=== PATIENT | female | born 1995 | race American Indian/Alaskan Native ===

== ENCOUNTER 2018-07-19 15:27 | Emergency (ER) | payer SELFPAY ==
[2018-07-19 15:51] VITALS: BMI 27.6
[2018-07-19 15:54] VITALS: RESP 18; O2SAT 100
[2018-07-19] MEDS ORDERED: Sodium Chloride 0.9% 1,000 ML IV ONE (16:36)
--- NOTE | 2018-07-19 16:36 | C.PDOC ---
History Of Present Illness 23 y/o female presents to ED with c/o abdominal pain and back pain for 2 weeks associated with vomiting for 1 week worse after eating. Patient took motrin with no improvement and denies recent travel, fever, dysuria, hematuria, vaginal discharge, urinary frequency or urinary incontinence. LMP 05/2018 <Sari Ruff - Last Filed: 07/19/18 18:53> History Per: Patient History/Exam Limitations: no limitations Onset/Duration Of Symptoms: Days Current Symptoms Are (Timing): Still Present <Sari Ruff - Last Filed: 07/19/18 18:53> <Deng Hermosillo - Last Filed: 07/19/18 19:55> Time Seen by Provider: 07/19/18 16:11 Chief Complaint (Nursing): Abdominal Pain Past Medical History Reviewed: Historical Data, Nursing Documentation, Vital Signs Vital Signs: Last Vital Signs Temp 98.6 F 07/19/18 15:50 Pulse 100 H 07/19/18 15:50 Resp 18 07/19/18 15:50 BP 113/73 07/19/18 15:50 Pulse Ox 100 07/19/18 15:50 - Medical History PMH: Migraine Surgical History: No Surg Hx - [facility] Procedures INJECT/INFUSE ELECTROLYT (05/25/14) Family History: States: No Known Family Hx - Social History Hx Alcohol Use: No Hx Substance Use: Yes (marijuana) - Immunization History Hx Tetanus Toxoid Vaccination: No Hx Influenza Vaccination: No Hx Pneumococcal Vaccination: No <Sari Ruff - Last Filed: 07/19/18 18:53> Vital Signs: Last Vital Signs Temp 98.5 F 07/19/18 19:40 Pulse 85 07/19/18 19:40 Resp 18 07/19/18 19:40 BP 121/71 07/19/18 19:40 Pulse Ox 100 07/19/18 19:40 - [facility] Procedures INJECT/INFUSE ELECTROLYT (05/25/14) <Deng Hermosillo - Last Filed: 07/19/18 19:55> Review Of Systems Constitutional: Negative for: Fever, Chills Gastrointestinal: Positive for: Vomiting, Abdominal Pain. Negative for: Diarrhea, Constipation Genitourinary: Negative for: Dysuria Musculoskeletal: Positive for: Back Pain Skin: Negative for: Rash <SpeedySari - Last Filed: 07/19/18 18:53> Physical Exam - Physical Exam Appears: Non-toxic, No Acute Distress Skin: Warm, Dry, No Rash Head: Atraumatic, Normacephalic Eye(s): bilateral: Normal Inspection Oral Mucosa: Moist Neck: Normal ROM, Supple Cardiovascular: Rhythm Regular Respiratory: Normal Breath Sounds, No Rales, No Rhonchi, No Wheezing Gastrointestinal/Abdominal: Soft, No Tenderness, No Guarding, No Rebound Back: No CVA Tenderness Extremity: Bilateral: Atraumatic Neurological/Psych: Oriented x3, Normal Speech, Normal Cognition <RuffSari - Last Filed: 07/19/18 18:53> ED Course And Treatment - Laboratory Results Result Diagrams: 07/19/18 17:14 07/19/18 17:14 O2 Sat by Pulse Oximetry: 100 (ra) Pulse Ox Interpretation: Normal <RuffSari - Last Filed: 07/19/18 18:53> - Laboratory Results Result Diagrams: 07/19/18 17:14 07/19/18 17:14 Pulse Ox Interpretation: Normal Reevaluation Time: 19:55 Reassessment Condition: Improved <JaimeeGlenyskarin - Last Filed: 07/19/18 19:55> Medical Decision Making Medical Decision Making: Impression: Abdominal pain and vomiting POC test positive Plan: * Blood work * UA Progress: Labs reviewed , potassium slightly hemolyzed. UA shows no infection, positive result. 1900 Case signed out to night attending DR Hermosillo pending US results. <SpeedySari Cristofer - Last Filed: 07/19/18 18:53> Disposition - Disposition Disposition Time: 19:04 <SpeedySari Cristofer - Last Filed: 07/19/18 18:53> Counseled Patient/Family Regarding: Studies Performed, Diagnosis, Need For Followup <Deng Hermosillo - Last Filed: 07/19/18 19:55> - Disposition Referrals: Leah Oates MD [Medical Doctor] - Condition: STABLE Additional Instructions: Please follow up with ypur chef kitchen manager Instructions: (ED) - Clinical Impression Clinical Impression: Positive test - PA / SOUND TECHNICIAN SUPERVISOR / Resident Statement /DO has reviewed & agrees with the documentation as recorded. - Scribe Statement The provider has reviewed the documentation as recorded by the Scribe Merlene Bobby All medical record entries made by the Adyibe were at my direction and personally dictated by me. I have reviewed the chart and agree that the record accurately reflects my personal performance of the history, physical exam, medical decision making, and the department course for this patient. I have also personally directed, reviewed, and agree with the discharge instructions and disposition. <Sari Ruff - Last Filed: 07/19/18 18:53> Physician Patient Turnover Patient Signed Over To: Deng Hermosillo Handoff Comments: pending US results. <Sari Ruff - Last Filed: 07/19/18 18:53>
[2018-07-19 17:22] LABS: BASO # 0.1 K/uL (0.0-0.2); BASO % 0.9 % (0.0-2.0); EOS # 0.1 K/uL (0.0-0.7); EOS % 1.4 % (0.0-4.0); HEMOGLOBIN 11.8 g/dL (11.0-16.0); LYMPH # 2.8 K/uL (1.0-4.3); LYMPH % 28.5 % (20.0-40.0); MEAN CELL VOLUME 84.3 fL (81.0-99.0); MEAN CORPUSCULAR HEMOGLOBIN 27.6 pg (27.0-31.0); MEAN CORPUSCULAR HGB CONC 32.7 g/dL (33.0-37.0); MEAN PLATELET VOLUME 8.6 fL (7.2-11.7); MONO # 0.7 K/uL (0.0-0.8); MONO % 7.3 % (0.0-10.0); NEUT % 61.9 % (50.0-75.0); NRBC % 0.1 % (0.0-2.0); RBC 4.3 Mil/uL (3.80-5.20); RED CELL DISTRIBUTION WIDTH 13.6 % (11.5-14.5); WHITE BLOOD COUNT 9.7 K/uL (4.8-10.8)
[2018-07-19 17:31] LABS: BLOOD UREA NITROGEN 8 mg/dL (7-17); CALCIUM 9.2 mg/dl (8.6-10.4); GFR NON-AFRICAN AMERICAN > 60
[2018-07-19 17:42] LABS: ALB/GLOB RATIO 1.3 (1.0-2.1); ALBUMIN 4.4 g/dL (3.5-5.0); ALT/SGPT 25 U/L (9-52); AST/SGOT 27 U/L (14-36)
[2018-07-19 18:01] LABS: HCG,QUALITATIVE URINE POSITIVE (NEGATIVE)
[2018-07-19 18:02] LABS: SQUAMOUS EPITHIAL 2 /hpf (0-5); URINE BACTERIA RARE (<OCC); URINE BILIRUBIN NEGATIVE (NEGATIVE); URINE BLOOD NEGATIVE (NEGATIVE); URINE CLARITY Clear (Clear); URINE COLOR Yellow (YELLOW); URINE GLUCOSE (UA) NORMAL (Normal); URINE LEUKOCYTE ESTERASE NEG Leu/uL (Negative); URINE PROTEIN NEGATIVE (NEGATIVE); URINE UROBILINOGEN NORMAL mg/dL (0.2-1.0)
[2018-07-19 20:12] VITALS: BP 130/81; PULSE 94; TEMP 98.7
--- NOTE | 2018-07-20 08:42 | US ---
Pelvic ultrasound HISTORY: . Pain. COMPARISON: None available. Technique: Real-time sonography was performed through the pelvis utilizing transabdominal and transvaginal techniques. Findings: Uterus: 7.1 x 5.1 x 5.3 centimeters. Heterogeneous echotexture. Anteverted. Cervix measures 2.8 centimeters. Intrauterine gestational sac measures 1.9 centimeters corresponding to a gestational age of 6 weeks and 3 days. Yolk sac measures 3 millimeters. Fortine-rump length measures 1.0 centimeters corresponding to a gestational age of 7 weeks and 1 day. heart rate of 148 beats per minute. Subchorionic hemorrhage seen adjacent to the gestational sac measuring 1.9 x 1.7 x 0.6 centimeters. Free fluid noted within the pelvic cul-de-sac. Right ovary: 4.0 x 2.4 x 3.4 centimeters. Normal flow. Heterogeneous right ovarian corpus luteal cyst measuring 2.1 x 1.4 x 2.1 centimeters. Left ovary: 2.5 x 2.2 x 2.7 centimeters. Normal flow. Impression: Intrauterine corresponding to a gestational age of 7 weeks and 1 days by crown-rump length of 1.0 centimeters. heart rate of 148 beats per minute. Subchorionic hemorrhage seen adjacent to the gestational sac measuring 1.9 x 1.7 x 0.6 centimeters. Probable right ovarian corpus luteal cyst measuring 2.1 centimeters. Free fluid noted within the pelvic cul-de-sac. Limited 1st trimester ultrasound for viability purposes only. Continued interval followup with serial ultrasound, serial HCG levels, and gynecological consultation would be helpful if clinically indicated. A preliminary report was generated at 7:27 p.m. on 07/19/[address] Carolyn Orozco from [facility]
== END 2018-07-19 20:12 | disposition home or self-care (01) ==
LOC: C.ER 15:27
DX: R10.9 Unspecified abdominal pain (principal); R11.10 Vomiting, unspecified; Z32.01 Encounter for pregnancy test, result positive
CPT/HCPCS: 76805; 76817; 80053; 81001; 84702; 84703; 85025; 96360; 99285; J7030

== ENCOUNTER 2018-08-23 16:24 | Emergency (ER) | payer MEDICAID ==
[2018-08-23 16:25] VITALS: BMI 27.6
[2018-08-23] MEDS ORDERED: Sodium Chloride 0.9% 1,000 ML IV ONE (17:08)
--- NOTE | 2018-08-23 17:34 | C.PDOC ---
History Of Present Illness 23-year-old female, approximately 11 weeks , presents to the ED today complaining of nausea and vomiting since the beginning of her . Patient reports loss of appetite but states she is gaining weight. Two days ago she was feeling weak and passed out at home. Patient did not seek medical attention at that time. Today she tried eating chicken wings and fries, then vomited immediately, and came to the ED. Otherwise she denies any fever, chills, cough, URI symptoms, abdominal pain, vaginal bleeding, or urinary symptoms. Time Seen by Provider: 08/23/18 17:08 Chief Complaint (Nursing): GI Problem History Per: Patient History/Exam Limitations: no limitations Onset/Duration Of Symptoms: Days Current Symptoms Are (Timing): Still Present Past Medical History Reviewed: Historical Data, Nursing Documentation, Vital Signs Vital Signs: Last Vital Signs Temp 98.1 F 08/23/18 16:41 Pulse 111 H 08/23/18 16:41 Resp 18 08/23/18 16:41 BP 122/72 08/23/18 16:41 Pulse Ox 99 08/23/18 16:41 - Medical History PMH: GERD, Migraine Denies: Chronic Kidney Disease Other PMH: Ovarian cyst Surgical History: No Surg Hx Denies: Pacemaker - [facility] Procedures INJECT/INFUSE ELECTROLYT (05/25/14) Family History: States: No Known Family Hx - Social History Hx Tobacco Use: Yes Hx Alcohol Use: No Hx Substance Use: Yes (marijuana) - Immunization History Hx Tetanus Toxoid Vaccination: No Hx Influenza Vaccination: No Hx Pneumococcal Vaccination: No Review Of Systems Except As Marked, All Systems Reviewed And Found Negative. Constitutional: Negative for: Fever, Chills Cardiovascular: Negative for: Chest Pain Respiratory: Negative for: Cough, Shortness of Breath Gastrointestinal: Positive for: Nausea, Vomiting. Negative for: Abdominal Pain, Hematemesis Genitourinary: Negative for: Dysuria, Frequency, Vaginal Discharge, Vaginal Bleeding Neurological: Negative for: Headache, Dizziness Physical Exam - Physical Exam Appears: Non-toxic, No Acute Distress Skin: Warm, Dry, No Rash Head: Atraumatic, Normacephalic Eye(s): bilateral: Normal Inspection Oral Mucosa: Moist Neck: Normal ROM Chest: Symmetrical Cardiovascular: Rhythm Regular, No Murmur Respiratory: Normal Breath Sounds, No Rales, No Rhonchi, No Wheezing Gastrointestinal/Abdominal: Bowel Sounds (normal), Soft, No Tenderness, No Guarding Back: Normal Inspection Extremity: Bilateral: Atraumatic, Normal Color And Temperature, Normal ROM Neurological/Psych: Oriented x3, Normal Speech Gait: Steady ED Course And Treatment - Laboratory Results Result Diagrams: 08/23/18 18:05 08/23/18 18:05 O2 Sat by Pulse Oximetry: 99 (on room air) Pulse Ox Interpretation: Normal Medical Decision Making Medical Decision Making: Impression: Nausea, vomiting during Plan: * CBC, CMP * UA, Urine HCG * IV fluids infusing Progress/Updates: Labs reviewed. On re-eval, the patient states she is feeling better but wants medicine for pain. states she has slight headache and epigastric pain and is now hungry. Tylenol PO was ordered. Discussed results with patient. Advise to drink fluids and follow up in the clinic. Rx given. Disposition Counseled Patient/Family Regarding: Diagnosis, Need For Followup, Rx Given - [facility]position [facility] Disposition: HOME/ ROUTINE Disposition Time: 18:36 Condition: STABLE Additional Instructions: Take medicine for nausea/vomiting as needed Follow up in the clinic with marketing/sales person Prescriptions: Doxylamine/Pyridoxine HCl (B6) [Donnell Gong 10-10 mg Tablet] 1 each PO Q6 PRN #20 tablet.dr MONTES Reason: Nausea/Vomiting Instructions: Nausea and Vomiting of (DC) - POA Present On Arrival: None - Clinical Impression Clinical Impression: Hyperemesis gravidarum - PA / DENTOFACIAL ORTHOPEDICS DENTIST / Resident Statement MD/DO has reviewed & agrees with the documentation as recorded. - Scribe Statement The provider has reviewed the documentation as recorded by the Scribjosh Mann All medical record entries made by the Adyibjosh were at my direction and personally dictated by me. I have reviewed the chart and agree that the record accurately reflects my personal performance of the history, physical exam, medical decision making, and the department course for this patient. I have also personally directed, reviewed, and agree with the discharge instructions and disposition.
[2018-08-23 18:08] LABS: BASO % 0.5 % (0.0-2.0); EOS # 0.1 K/uL (0.0-0.7); EOS % 0.6 % (0.0-4.0); HEMOGLOBIN 12.4 g/dL (11.0-16.0); LYMPH % 21.4 % (20.0-40.0); MEAN CELL VOLUME 85.1 fL (81.0-99.0); MEAN CORPUSCULAR HEMOGLOBIN 28.1 pg (27.0-31.0); MEAN PLATELET VOLUME 7.9 fL (7.2-11.7); MONO # 0.7 K/uL (0.0-0.8); MONO % 7.8 % (0.0-10.0); NEUT # 6.4 K/uL (1.8-7.0); NEUT % 69.7 % (50.0-75.0); NRBC % 0.1 % (0.0-2.0); RBC 4.43 Mil/uL (3.80-5.20); WHITE BLOOD COUNT 9.1 K/uL (4.8-10.8)
[2018-08-23 18:10] LABS: HCG,QUALITATIVE URINE POSITIVE (NEGATIVE)
[2018-08-23 18:22] LABS: SQUAMOUS EPITHIAL 1 /hpf (0-5); URINE BACTERIA RARE (<OCC); URINE BILIRUBIN NEGATIVE (NEGATIVE); URINE BLOOD NEGATIVE (NEGATIVE); URINE CALCIUM OXALATE CRYSTALS OCC /hpf (<OCC); URINE CLARITY Clear (Clear); URINE COLOR Yellow (YELLOW); URINE GLUCOSE (UA) 1+ mg/dL (Normal); URINE HYALINE CAST 0-2 /lpf (0-2); URINE LEUKOCYTE ESTERASE NEG Leu/uL (Negative); URINE PROTEIN 1+ mg/dL (NEGATIVE)
[2018-08-23 18:28] LABS: ALB/GLOB RATIO 1.4 (1.0-2.1); ALBUMIN 4.6 g/dL (3.5-5.0); ALT/SGPT 19 U/L (9-52); AST/SGOT 20 U/L (14-36); BLOOD UREA NITROGEN 7 mg/dL (7-17); CALCIUM 9.5 mg/dl (8.6-10.4); GFR NON-AFRICAN AMERICAN > 60
[2018-08-23 19:25] VITALS: BP 113/77; PULSE 93; RESP 16; TEMP 98.7; O2SAT 100
== END 2018-08-23 19:24 | disposition home or self-care (01) ==
LOC: C.ER 16:24
DX: O21.0 Mild hyperemesis gravidarum (principal); Z3A.11 11 weeks gestation of pregnancy
CPT/HCPCS: 80053; 81001; 84703; 85025; 96360; 99285; J7030

== ENCOUNTER 2018-09-01 11:17 | Emergency (ER) | payer MEDICAID ==
[2018-09-01 11:37] VITALS: BMI 30.9
[2018-09-01 12:49] LABS: HCG,QUALITATIVE URINE POSITIVE (NEGATIVE)
[2018-09-01] MEDS ORDERED: Sodium Chloride 0.9% 1,000 ML IV ONE (12:54)
--- NOTE | 2018-09-01 12:55 | C.PDOC ---
History Of Present Illness 23yo female, , comes to ER reporting she had a syncopal episode this morning. Patient states she has been having decreased PO intake and is feeling increasingly nauseous; patient states she ate half a banana this morning and did not drink anything. She otherwise denies any fever, chills, cough, chest pain, abdominal pain, vomiting, vaginal bleeding/discharge. Time Seen by Provider: 09/01/18 12:40 Chief Complaint (Nursing): Abdominal Pain History Per: Patient History/Exam Limitations: no limitations Onset/Duration Of Symptoms: Hrs Past Medical History Reviewed: Historical Data, Nursing Documentation, Vital Signs Vital Signs: Last Vital Signs Temp 98.4 F 09/01/18 11:38 Pulse 106 H 09/01/18 11:38 Resp 17 09/01/18 11:38 BP 110/73 09/01/18 11:38 Pulse Ox 99 09/01/18 11:38 - Medical History PMH: GERD, Migraine Denies: Chronic Kidney Disease Surgical History: No Surg Hx Denies: Pacemaker - [facility] Procedures INJECT/INFUSE ELECTROLYT (05/25/14) Family History: States: No Known Family Hx - Social History Hx Tobacco Use: Yes Hx Alcohol Use: No Hx Substance Use: Yes - Immunization History Hx Tetanus Toxoid Vaccination: No Hx Influenza Vaccination: No Hx Pneumococcal Vaccination: No Review Of Systems Except As Marked, All Systems Reviewed And Found Negative. Constitutional: Negative for: Fever, Chills Cardiovascular: Negative for: Chest Pain Respiratory: Negative for: Shortness of Breath Gastrointestinal: Positive for: Nausea. Negative for: Vomiting, Abdominal Pain Genitourinary: Negative for: Vaginal Discharge, Vaginal Bleeding Physical Exam - Physical Exam Appears: Non-toxic, No Acute Distress Skin: Normal Color, Warm, Dry, No Rash Head: Atraumatic, Normacephalic Eye(s): bilateral: Normal Inspection, PERRL, EOMI Oral Mucosa: Moist Neck: Normal ROM, Supple Chest: Symmetrical Cardiovascular: Rhythm Regular Respiratory: Normal Breath Sounds Gastrointestinal/Abdominal: Normal Exam, Soft, No Tenderness Back: Normal Inspection, No CVA Tenderness Extremity: Normal ROM, No Swelling Neurological/Psych: Oriented x3, Normal Motor ED Course And Treatment - Laboratory Results Result Diagrams: 09/01/18 13:07 09/01/18 13:07 Lab Results: Urine HCG, Qual Positive (NEGATIVE) 09/01/18 12:41 Urine HCG, Qual Positive (NEGATIVE) 09/01/18 12:41 O2 Sat by Pulse Oximetry: 99 (RA) Pulse Ox Interpretation: Normal Medical Decision Making Medical Decision Makinyo female, , with nausea, syncopal episode today Plan: -- Labs -- IV Fluids -- Urinalysis -- Urine HCG On re-exam, the patient reports improvement of symptoms. Lungs are CTA, heart is RRR, abdomen is soft, non-tender and tolerating PO well. Ambulatory in the ED with steady gait. Follow up with the medical doctor within 1-2 days. Return if w orsened. Disposition - Disposition Referrals: [facility] [Outside] [facility] [Outside] Disposition: HOME/ ROUTINE Disposition Time: 15:23 Condition: GOOD Additional Instructions: Follow up with the medical doctor within 1-2 days, return if worsened. Prescriptions: Acetaminophen [Tylenol] 325 mg PO Q6 PRN #30 tab PRN Reason: Pain, Mild (1-3) Instructions: Hyperemesis Gravidarum Forms: [employer] (Pakistani) - Clinical Impression Clinical Impression: Hyperemesis gravidarum - PA / MANAGER OF OPERATIONS / Resident Statement MD/DO has reviewed & agrees with the documentation as recorded. - Scribe Statement The provider has reviewed the documentation as recorded by the Jessy Moreno Provider Attestation: All medical record entries made by the Jessy were at my direction and personally dictated by me. I have reviewed the chart and agree that the record accurately reflects my personal performance of the history, physical exam, medical decision making, and the department course for this patient. I have also personally directed, reviewed, and agree with the discharge instructions and disposition.
[2018-09-01 12:57] LABS: SQUAMOUS EPITHIAL 11 /hpf (0-5); URINE BILIRUBIN NEGATIVE (NEGATIVE); URINE BLOOD NEGATIVE (NEGATIVE); URINE CALCIUM OXALATE CRYSTALS OCC /hpf (<OCC); URINE CLARITY Hazy (Clear); URINE COLOR Amber (YELLOW); URINE GLUCOSE (UA) NORMAL (Normal); URINE LEUKOCYTE ESTERASE NEG Leu/uL (Negative); URINE PROTEIN 2+ mg/dL (NEGATIVE)
[2018-09-01 13:13] LABS: BASO % 0.3 % (0.0-2.0); EOS % 0.4 % (0.0-4.0); HEMOGLOBIN 11.8 g/dL (11.0-16.0); LYMPH # 1.4 K/uL (1.0-4.3); MEAN CORPUSCULAR HEMOGLOBIN 28.1 pg (27.0-31.0); MEAN CORPUSCULAR HGB CONC 32.1 g/dL (33.0-37.0); MEAN PLATELET VOLUME 8.2 fL (7.2-11.7); MONO # 0.7 K/uL (0.0-0.8); MONO % 7.5 % (0.0-10.0); NEUT # 7.3 K/uL (1.8-7.0); NEUT % 76.8 % (50.0-75.0); RBC 4.21 Mil/uL (3.80-5.20); RED CELL DISTRIBUTION WIDTH 13.8 % (11.5-14.5); WHITE BLOOD COUNT 9.5 K/uL (4.8-10.8)
[2018-09-01 13:15] LABS: MEAN CELL VOLUME 87.3 fL (81.0-99.0)
[2018-09-01 13:22] LABS: ALB/GLOB RATIO 1.2 (1.0-2.1); ALBUMIN 4.1 g/dL (3.5-5.0); ALT/SGPT 23 U/L (9-52); AST/SGOT 20 U/L (14-36); BLOOD UREA NITROGEN 8 mg/dL (7-17); GFR NON-AFRICAN AMERICAN > 60; LIPASE 105 U/L (23-300)
[2018-09-01] MEDS ORDERED: Sodium Chloride 0.9% 1,000 ML ONE (13:35)
[2018-09-01 14:04] VITALS: RESP 18
[2018-09-01 15:25] VITALS: O2SAT 99
[2018-09-01 15:56] VITALS: BP 115/65; PULSE 74; TEMP 98.3
== END 2018-09-01 15:56 | disposition home or self-care (01) ==
LOC: C.ER 11:17
DX: O21.0 Mild hyperemesis gravidarum (principal); Z3A.13 13 weeks gestation of pregnancy
CPT/HCPCS: 80053; 81001; 82948; 83690; 84703; 85025; 96374; 99285; J2405; J7030